=== PATIENT | female | born 1970 | race African-American/Black ===

== ENCOUNTER 2017-09-14 06:11 | Observation (INO) | payer OTHER ==
[~2017-09-14] VITALS: Ht 165.1 cm; Wt 117.9 kg
[~2017-09-14 06:11] MED LIST: HYDROCHLOROTHIA25 MG PO; LISINOPRIL10 MG PO; OMEPRAZOLE20 MG PO
[2017-09-14] MEDS ORDERED: ASPIRIN 81 MG CHEW TAB PO ONE (06:30)
[2017-09-14] MEDS ORDERED: HYDROCHLOROTHIAZIDE 25 MG TAB PO ONE (06:35)
[2017-09-14] MEDS ORDERED: LISINOPRIL 10 MG TAB PO ONE (06:35)
[2017-09-14 06:52] LABS: BASOPHILS % 0.4 % (0.0-1.0); EOSINOPHILS # (AUTO) 0.1 (0.0-0.4); EOSINOPHILS % 1.1 % (0.0-6.0); LYMPHOCYTES # (AUTO) 2.3 (1.0-3.2); MEAN CORPUSCULAR HEMOGLOBIN 28.6 pg (28-32); MEAN CORPUSCULAR HGB CONC 33.3 g/dL (31-35); MEAN CORPUSCULAR VOLUME 85.7 fL (81-99); MONOCYTES # (AUTO) 0.6 (0.2-0.8); MONOCYTES % 8.6 % (4.4-11.3); NEUTROPHILS # (AUTO) 4.4 (2.1-6.9); NEUTROPHILS % 58.8 % (38.7-80.0); PLATELET COUNT 421 x10e3/uL (140-360)
[2017-09-14 06:56] LABS: INR 1.06
[2017-09-14 06:57] LABS: PARTIAL THROMBOPLASTIN TIME 40.5 seconds (23.8-35.5)
--- NOTE | 2017-09-14 06:58 | Diagnostic Imaging Report ---
CHEST SINGLE (PORTABLE), 09/14/2017 6:25 AM Technique: CHEST SINGLE (PORTABLE) Comparison: None available. Clinical history: chest pain Findings: Limited by portable technique and overlying soft tissue attenuation. Otherwise unremarkable appearance of the heart, mediastinum, lungs and pleural spaces. Impression: 1. Lines/Tubes: None 2. No acute abnormality. Signed by: Dr Melissa Beckham MD on 09/14/2017 6:54 AM
[2017-09-14 07:04] LABS: ALANINE AMINOTRANSFERASE 26 IU/L (0-55); ALBUMIN 3.4 g/dL (3.5-5.0); ALBUMIN/GLOBULIN RATIO 0.9 (0.8-2.0); ALKALINE PHOSPHATASE 63 IU/L (40-150); ANION GAP 12.5 mmol/L (8-16); BLOOD UREA NITROGEN 7 mg/dL (7-26); BUN/CREATININE RATIO 9 (6-25); CALCIUM 9.1 mg/dL (8.4-10.2); CARBON DIOXIDE 24 mmol/L (22-29); CHLORIDE 105 mmol/L (98-107); CREATINE KINASE 104 IU/L (29-168); CREATININE, SERUM 0.78 mg/dL (0.57-1.11); EST GLOMERULAR FILTRATION RATE > 60 ML/MIN (60-); GLUCOSE 99 mg/dL (74-118); POTASSIUM 3.5 mmol/L (3.5-5.1); SODIUM 138 mmol/L (136-145)
--- NOTE | 2017-09-14 08:32 | History and Physical ---
Ms. Jean-Baptiste is a 47-year-old female with a history of hypertension came to the emergency room complaining of chest pain. As per the patient, chest pain started a week ago on and off lasting a few minutes with no radiation. This morning she was sleeping and the pain woke her up. This pain lasted more than an hour. She decided to come to the emergency room. She denies any nausea, vomiting, any shortness of breath. PAST MEDICAL HISTORY: Hypertension. ALLERGIES: NO KNOWN DRUG ALLERGIES. SOCIAL HISTORY: She does not smoke. She quit drinking a few months ago. SURGICAL HISTORY: Tubal ligation and cholecystectomy. PHYSICAL EXAMINATION GENERAL: Today, she is awake and alert. VITALS: Blood pressure is 161/102, temperature 97.5, heart rate is 89, respiratory rate is 18. HEART: Regular rate. Normal S1 and S2. LUNGS: Clear to auscultation. ABDOMEN: Distended and soft. EXTREMITIES: Lower extremities with no edema. No erythema. NEURO: She is awake and alert times 3. No motor or sensory deficit. BLOOD WORK: White count is 7.48, hemoglobin 12, hematocrit 36. Potassium is 3.5, creatinine is 0.78. First set of cardiac enzymes negative. PT is 13, INR 1.06. Chest x-ray shows no acute abnormalities. ASSESSMENT AND PLAN 1. Chest pain on and off: Rule out coronary artery disease. 2. Uncontrolled hypertension. PLAN: At the present time, the patient is going to need an EKG, echocardiogram, cardiac enzymes times 3. Cardiology consult. She was started on aspirin 325 mg daily. She is on hydrochlorothiazide 25 mg daily, lisinopril 10 mg daily. We are going to give her p.r.n. blood pressure medications as needed. All of this was discussed with the patient. All questions were answered to satisfaction. Job#: [id number] MACY
[2017-09-14 09:00] VITALS: BP 164/93
[2017-09-14] MEDS ORDERED: ACETAMINOPHEN 325 MG TAB PO PRN (09:30)
[2017-09-14] MEDS: ASPIRIN 325 MG TAB EC PO SCH (09:57)
[2017-09-14 10:31] VITALS: BP 164/93
[2017-09-14 11:26] VITALS: BP 135/77
--- NOTE | 2017-09-14 13:09 | Consultation ---
DATE OF CONSULTATION: September 14, 2017 CARDIOLOGY CONSULTATION REASON FOR CONSULTATION: Chest pain. CHIEF COMPLAINT: "I have a pinch in my chest for the past 1 week." HISTORY OF PRESENT ILLNESS: Patient is a 47-year-old female with a history of hypertension that is poorly controlled and obesity, who presented to the ER with complaints of left-sided chest pain that began about one week ago. She describes the pain as a pinching sensation on the left side of her chest near her breast bone that is constant, 7/10 in severity. It has been there for approximately one week. Has never gone away completely. It does get worse sometimes with movement. Does not improve with rest. Does not radiate. No shortness of breath or diaphoresis associated. Patient also complains about feeling some palpitations without any syncope or presyncope. She has no prior cardiac history. REVIEW OF SYSTEMS: A 10-point review of systems was performed and was negative other than what is mentioned in the HPI. PAST MEDICAL HISTORY 1. Hypertension. 2. Fibroids. 3. Obesity. FAMILY HISTORY: Notable for family history of breast cancer on father's side. No history of early CAD. SOCIAL HISTORY: Patient does not smoke, drink or use illicit drugs. PHYSICAL EXAMINATION VITAL SIGNS: Temperature 97.6. Pulse 80. Respiratory rate 20. Blood pressure 135/77, satting 98% on room air. EYES: Conjunctivae clear. EARS, NOSE, MOUTH AND THROAT: Normal mucosa. No pallor or bleeding. NECK: No jugular venous distention. MUSCULOSKELETAL: Normal muscle tone and strength. No atrophy or abnormal movements. EXTREMITIES: No clubbing or cyanosis. SKIN: No venous stasis changes or ulcers. GENERAL: Well-developed, well-nourished, obese. CARDIOVASCULAR: PMI could not be palpated due to body habitus. Normal S1, S2. No murmurs, rubs or gallops. Palpable radial pulses. Palpable carotid pulses. Palpable pedal pulses. No peripheral edema or varicosities. RESPIRATORY: No respiratory distress. Lungs are clear to auscultation bilaterally. ABDOMEN: Soft, nontender. No masses. No hepatosplenomegaly. NEURO AND PSYCH: Alert and oriented to person, place and time. Normal affect. MEDICATIONS: Inpatient and outpatient medications are reviewed. Cardiovascular medications are notable for lisinopril 10 mg daily, hydrochlorothiazide 25 mg daily and aspirin 325 mg daily. LABS: Laboratory data reviewed and notable for negative cardiac enzymes. EKG reviewed, essentially normal. ASSESSMENT 1. Atypical chest pain. 2. Hypertension. 3. Obesity. PLAN: Her chest pain is reproducible by palpation. Based on history, most likely costochondritis, noncardiac chest pain. Recommend starting ibuprofen 800 mg q.8 h. for 2 weeks for treatment. The patient can stop the aspirin. Resume her home blood pressure medicines. Patient to follow up with me in clinic in 2 to 4 weeks as an outpatient. Thank you for this consult. From a cardiovascular standpoint , the patient is ready to be discharged after a 2nd set of cardiac enzymes has been negative. Job#: [id number]
[2017-09-14] MEDS: IBUPROFEN 400 MG TAB PO SCH ×3 (13:20→21:33)
[2017-09-14] MEDS ORDERED: IBUPROFEN 200 MG TAB PO SCH (14:00)
[2017-09-14 16:11] VITALS: BP 123/80
[2017-09-14 16:41] LABS: CREATINE KINASE MB 0.4 ng/mL (0-5.0)
[2017-09-14 20:00] VITALS: BP 125/77
[2017-09-14 21:00] VITALS: BP 125/77
[2017-09-15] VITALS: BP 126/82
[2017-09-15 01:00] LABS: CREATINE KINASE MB 0.3 ng/mL (0-5.0)
[2017-09-15 04:00] VITALS: BP 125/83
[2017-09-15 08:28] VITALS: BP 139/79
[2017-09-15 08:29] VITALS: BP 139/79
[2017-09-15] MEDS ORDERED: LISINOPRIL 10 MG TAB PO SCH (09:00)
[2017-09-15] MEDS ORDERED: HYDROCHLOROTHIAZIDE 25 MG TAB PO SCH (09:00)
[2017-09-15] MEDS: ASPIRIN 325 MG TAB EC PO SCH (09:20)
--- NOTE | 2017-09-15 10:58 | Discharge Summary ---
Ms. Jean-Baptiste is a 47-year-old female who came to the emergency room. She has a history of hypertension. She came to the emergency room complaining of chest pain on and off for a week. She was seen by copy worker and cleared by him. The plan is to discharge her home if cardiac enzymes are negative and echocardiogram is negative. PHYSICAL EXAMINATION GENERAL: Today, she is awake and alert. VITALS: Temperature is 98.5, blood pressure 129/79. HEART: Regular rate. LUNGS: Clear to auscultation. ABDOMEN: Soft. BLOOD WORK: Potassium 3.5, creatinine 0.78, glucose 99. White count 7.48, hemoglobin 12, hematocrit 36. ASSESSMENT AND PLAN 1. Chest pain. 2. Uncontrolled hypertension. PLAN: At the present time, if cardiac enzymes are negative and echocardiogram is negative, the patient is going to be discharged home on ibuprofen 800 mg daily, hydrochlorothiazide 25 mg daily and lisinopril 10 mg daily. She needs followup with me in 1 week. She is to call me or come back to the emergency room if any recurrent pain. All of this was discussed with the patient. All questions were answered to satisfaction. Please see home medication reconciliation list. JERRI MURCIA MD Job#: [id number] MA
[2017-09-15 11:14] VITALS: BP 112/87
[2017-09-15 11:16] VITALS: BP 112/87
[2017-09-15] MEDS ORDERED: LISINOPRIL10 MG PO (11:29)
[2017-09-15] MEDS ORDERED: HYDROCHLOROTHIA25 MG PO (11:30)
[2017-09-15] MEDS ORDERED: IBUPROFEN400 MG PO (11:30)
[2017-09-15] MEDS: IBUPROFEN 400 MG TAB PO SCH (15:24)
== END 2017-09-15 17:04 | disposition home or self-care (01) ==
LOC: ER 06:11 → ERHOLD 07:55 → IMCU 08:48
PROVIDERS: ADMIT Internal Medicine; ATTEND Internal Medicine
DX: R07.2 Precordial pain (principal); I10 Essential (primary) hypertension; D25.9 Leiomyoma of uterus, unspecified; Z87.891 Personal history of nicotine dependence; E66.9 Obesity, unspecified; Z68.41 Body mass index [BMI] 40.0-44.9, adult
CPT/HCPCS: 36415; 71045; 80053; 82550; 82553; 83880; 84484; 85025; 85610; 85730; 93005; 93306; 99284; G0378 ×2

== ENCOUNTER 2018-06-06 11:53 | Emergency (ER) | payer OTHER ==
[~2018-06-06] VITALS: Ht 165.1 cm; Wt 117.9 kg
[~2018-06-06 11:53] MED LIST changes: +IBUPROFEN400 MG PO
[2018-06-06] MEDS ORDERED: FAMOTIDINE 20 MG TAB PO ONE (12:15)
[2018-06-06] MEDS ORDERED: DEXAMETHASONE SOD PHOS 10 MG/1 ML VIAL IM ONE (12:15)
[2018-06-06] MEDS ORDERED: DIPHENHYDRAMINE HCL 25 MG CAP PO ONE (12:15)
[2018-06-06 12:51] VITALS: BP 121/85
== END 2018-06-06 13:00 | disposition home or self-care (01) ==
LOC: ER 11:53
DX: R21 Rash and other nonspecific skin eruption (principal)
CPT/HCPCS: 99282; J1100

== ENCOUNTER 2019-04-13 18:03 | Emergency (ER) | payer OTHER ==
[~2019-04-13] VITALS: Ht 165.1 cm; Wt 117.9 kg
[2019-04-13 18:45] LABS: BASOPHILS # (AUTO) 0.1 (0.0-0.1); BASOPHILS % 0.6 % (0.0-1.0); EOSINOPHILS # (AUTO) 0.3 (0.0-0.4); EOSINOPHILS % 3.4 % (0.0-6.0); HEMATOCRIT 35.7 % (34.2-44.1); HEMOGLOBIN 11.3 g/dL (12.0-16.0); LYMPHOCYTES # (AUTO) 3.6 (1.0-3.2); LYMPHOCYTES % 42.2 % (18.0-39.1); MEAN CORPUSCULAR HEMOGLOBIN 27.3 pg (28-32); MEAN CORPUSCULAR HGB CONC 31.7 g/dL (31-35); MEAN CORPUSCULAR VOLUME 86.2 fL (81-99); MONOCYTES # (AUTO) 0.5 (0.2-0.8); MONOCYTES % 6.3 % (4.4-11.3); NEUTROPHILS % 47.3 % (38.7-80.0); PLATELET COUNT 514 x10e3/uL (140-360); RED BLOOD COUNT 4.14 x10e6/uL (3.6-5.1); RED CELL DISTRIBUTION WIDTH 15.5 % (11.7-14.4)
[2019-04-13 18:49] LABS: BILIRUBIN,URINE NEGATIVE (NEGATIVE); CLARITY,URINE CLEAR (CLEAR); COLOR,URINE YELLOW (YELLOW); KETONES,URINE NEGATIVE (NEGATIVE); LEUKOCYTE ESTERASE ,URINE NEGATIVE (NEGATIVE); NITRITE,URINE NEGATIVE (NEGATIVE); PROTEIN,URINE DIPSTICK NEGATIVE (NEGATIVE); URINE UROBILINOGEN 0.2 mg/dL (0.2 - 1)
[2019-04-13 18:50] LABS: PREGNANCY TEST, URINE NEGATIVE (NEGATIVE)
[2019-04-13 19:01] LABS: EPITHELIAL CELLS,URINE RARE /LPF
[2019-04-13 19:04] LABS: ALANINE AMINOTRANSFERASE 13 IU/L (0-55); ALBUMIN 3.8 g/dL (3.5-5.0); ALKALINE PHOSPHATASE 61 IU/L (40-150); ANION GAP 10.7 mmol/L (8-16); BLOOD UREA NITROGEN 9 mg/dL (7-26); BUN/CREATININE RATIO 12 (6-25); CALCIUM 8.9 mg/dL (8.4-10.2); CARBON DIOXIDE 26 mmol/L (22-29); CHLORIDE 106 mmol/L (98-107); CREATINE KINASE 136 IU/L (29-168); CREATININE, SERUM 0.77 mg/dL (0.57-1.11); EST GLOMERULAR FILTRATION RATE > 60 ML/MIN (60-); GLUCOSE 81 mg/dL (74-118); POTASSIUM 3.7 mmol/L (3.5-5.1); SODIUM 139 mmol/L (136-145)
--- NOTE | 2019-04-13 19:11 | Diagnostic Imaging Report ---
EXAMINATION: CHEST 2 VIEWS INDICATION: chest pain COMPARISON: 09/16/2017 FINDINGS: PA and lateral views TUBES and LINES: None. LUNGS: Lungs are well inflated. There is no evidence of pneumonia or pulmonary edema. PLEURA: No pleural effusion or pneumothorax. HEART AND MEDIASTINUM: The cardiomediastinal silhouette is unremarkable. BONES AND SOFT TISSUES: No acute osseous lesion. Soft tissues are unremarkable. UPPER ABDOMEN: No free air under the diaphragm. IMPRESSION: No acute thoracic abnormality. Signed by: Mike Novoa MD on 04/13/2019 7:08 PM
[2019-04-13 22:07] VITALS: BP 147/96
== END 2019-04-13 22:12 | disposition home or self-care (01) ==
LOC: ER 18:03
DX: R07.9 Chest pain, unspecified (principal); I10 Essential (primary) hypertension
CPT/HCPCS: 36415; 71046; 80053; 81001; 81025; 82550; 82553; 84484; 85025; 93005; 99284

== ENCOUNTER → 2019-08-16 | Outpatient (CLI) | payer OTHER ==
--- NOTE | 2019-08-16 15:59 | Diagnostic Imaging Report ---
EXAM: Complete Abdominal Ultrasound INDICATION: ^LEFT SIDED ABDOMINAL PAIN COMPARISON: None. TECHNIQUE: Transverse and longitudinal images of the upper abdomen were obtained. FINDINGS: Limited by body habitus and bowel gas. Liver: Size: 12.7 cm in the right midclavicular line, normal Appearance: Normal echogenicity, smooth contour Mass: No focal masses Spleen: Size: 9.1 cm in length, normal Echogenicity: Normal Mass: No focal masses Gallbladder: Surgically absent. Bile Ducts: Intrahepatic Ducts: No dilatation Extrahepatic Ducts: Common bile duct measures 0.4 cm, no dilatation Pancreas: Visualized pancreas is unremarkable. Right Kidney: Size: 9.1 cm Echogenicity: Normal Parenchymal thickness: Normal Collecting System: No hydronephrosis Stone: None Cyst/Mass: None Left Kidney: Size: 10.4 cm Echogenicity: Normal Parenchymal thickness: Normal Collecting System: No hydronephrosis Stone: None Cyst/Mass: Questionable 3.8 x 3.6 x 4.1 cm hypoechoic mass, extending from mid to superior pole. Vessels: Aorta: Visualized portions are unremarkable. Inferior Vena Cava: Visualized portions are normal Main Portal Vein: 0.7 cm, normal size with hepatopetal flow. Free Fluid: No ascites or pleural effusion IMPRESSION: Questionable left renal mass versus prominent column of Gregg. This can be further evaluated with nonurgent CT abdomen/pelvis with and without contrast (renal mass protocol). Otherwise, unremarkable abdominal ultrasound. Signed by: Dr. Fabien Tidwell MD on 08/16/2019 3:56 PM
--- NOTE | 2019-08-16 16:46 | Diagnostic Imaging Report ---
Exam: Pelvic ultrasound. History: Lower abdominal pain Comparison: Abdominal ultrasound of earlier the same day Findings: Transabdominal sonographic evaluation of the pelvis. The uterus is anteverted in position, measuring 14.0 x 6.7 x 9.1 cm. Endometrial stripe measures up to 13 mm. Multiple uterine fibroids, measuring up to 4.4 x 4.2 x 4.3 cm on the left and 6.8 x 5.4 x 5.9 cm on the right. The ovaries are not well-visualized on these transabdominal images due to overlying bowel gas. No free fluid in the pelvis. Impression: Multiple uterine fibroids. Ovaries not well visualized on this transabdominal study due to overlying bowel gas. Signed by: Thom Viera MD on 08/16/2019 4:43 PM
== END ==
LOC: US 11:35
PROVIDERS: ATTEND Internal Medicine Gastroenterology
DX: R10.32 Left lower quadrant pain (principal)
CPT/HCPCS: 76700; 76856

== ENCOUNTER 2020-07-19 02:58 | Emergency (ER) | payer SELFPAY ==
[~2020-07-19] VITALS: Ht 165.1 cm; Wt 117.9 kg
[2020-07-19 03:37] LABS: BASOPHILS % 0.4 % (0.0-1.0); EOSINOPHILS # (AUTO) 0.2 (0.0-0.4); EOSINOPHILS % 2.3 % (0.0-6.0); HEMATOCRIT 37.4 % (34.2-44.1); HEMOGLOBIN 11.8 g/dL (12.0-16.0); LYMPHOCYTES # (AUTO) 4.4 (1.0-3.2); LYMPHOCYTES % 45.5 % (18.0-39.1); MEAN CORPUSCULAR HEMOGLOBIN 27.4 pg (28-32); MEAN CORPUSCULAR HGB CONC 31.6 g/dL (31-35); MEAN CORPUSCULAR VOLUME 86.8 fL (81-99); MONOCYTES # (AUTO) 0.6 (0.2-0.8); MONOCYTES % 6.3 % (4.4-11.3); NEUTROPHILS # (AUTO) 4.4 (2.1-6.9); NEUTROPHILS % 45.2 % (38.7-80.0); PLATELET COUNT 474 x10e3/uL (140-360); RED BLOOD COUNT 4.31 x10e6/uL (3.6-5.1); RED CELL DISTRIBUTION WIDTH 16.3 % (11.7-14.4)
[2020-07-19 03:51] LABS: CLARITY,URINE CLOUDY (CLEAR); COLOR,URINE YELLOW (YELLOW)
[2020-07-19 03:52] LABS: AMPHETAMINES SCREEN,URINE NEGATIVE (NEGATIVE); BENZODIAZEPINES SCREEN,URINE NEGATIVE (NEGATIVE); KETONES,URINE NEGATIVE (NEGATIVE); LEUKOCYTE ESTERASE ,URINE 1+ (NEGATIVE); NITRITE,URINE NEGATIVE (NEGATIVE); PHENCYCLIDINE SCREEN,URINE NEGATIVE (NEGATIVE); PROTEIN,URINE DIPSTICK NEGATIVE (NEGATIVE); URINE UROBILINOGEN 0.2 mg/dL (0.2 - 1)
[2020-07-19 03:55] LABS: ALANINE AMINOTRANSFERASE 13 IU/L (0-55); ALBUMIN 3.6 g/dL (3.5-5.0); ALBUMIN/GLOBULIN RATIO 0.9 (0.8-2.0); ALKALINE PHOSPHATASE 68 IU/L (40-150); ANION GAP 14.2 mmol/L (8-16); BLOOD UREA NITROGEN 9 mg/dL (7-26); BUN/CREATININE RATIO 11 (6-25); CALCIUM 8.9 mg/dL (8.4-10.2); CARBON DIOXIDE 25 mmol/L (22-29); CHLORIDE 102 mmol/L (98-107); CREATININE, SERUM 0.85 mg/dL (0.57-1.11); EST GLOMERULAR FILTRATION RATE > 60 ML/MIN (60-); GLUCOSE 141 mg/dL (74-118); POTASSIUM 3.2 mmol/L (3.5-5.1); SODIUM 138 mmol/L (136-145)
[2020-07-19 04:05] LABS: WBC,URINE (MAN) 21-50 /HPF (0-5)
[2020-07-19 04:06] LABS: BACTERIA,URINE MANY /HPF; EPITHELIAL CELLS,URINE MANY /LPF; MUCUS,URINE MODERATE (RARE)
[2020-07-19] MEDS ORDERED: CEFTRIAXONE 1 GM VIAL IV ONE (04:15)
[2020-07-19] MEDS ORDERED: CEFTRIAXONE 1 GM in SODIUM CHLORIDE 0.9% 50ML 50 ML IV ONE (04:15)
[2020-07-19 04:21] LABS: CREATINE KINASE 187 IU/L (29-168)
[2020-07-19] MEDS ORDERED: CEFTRIAXONE 1 GM VIAL ONE (04:30)
[2020-07-19] MEDS ORDERED: SODIUM CHLORIDE 0.9% 50ML 50 ML ONE (04:31)
== END 2020-07-19 05:00 | disposition home or self-care (01) ==
LOC: ER 03:07
DX: R00.2 Palpitations (principal); N39.0 Urinary tract infection, site not specified; I10 Essential (primary) hypertension; K21.9 Gastro-esophageal reflux disease without esophagitis
CPT/HCPCS: 36415; 71045; 80053; 80307; 81001; 82550; 82553; 84484; 85025; 93005; 99284; J0696

== ENCOUNTER 2020-09-11 08:12 | Emergency (ER) | payer OTHER ==
[~2020-09-11] VITALS: Ht 167.6 cm; Wt 113.4 kg
[2020-09-11 08:55] LABS: CLARITY,URINE CLEAR (CLEAR); COLOR,URINE YELLOW (YELLOW); KETONES,URINE NEGATIVE (NEGATIVE); LEUKOCYTE ESTERASE ,URINE NEGATIVE (NEGATIVE); NITRITE,URINE NEGATIVE (NEGATIVE); PROTEIN,URINE DIPSTICK NEGATIVE (NEGATIVE); URINE UROBILINOGEN 0.2 mg/dL (0.2 - 1)
[2020-09-11 09:08] LABS: BACTERIA,URINE FEW /HPF; EPITHELIAL CELLS,URINE MODERATE /LPF; RBC,URINE 0-5 /HPF (0-5); WBC,URINE (MAN) 0-5 /HPF (0-5)
[2020-09-11 12:39] VITALS: BP 136/75
== END 2020-09-11 12:40 | disposition home or self-care (01) ==
LOC: ER 08:30
DX: R10.2 Pelvic and perineal pain (principal); D25.9 Leiomyoma of uterus, unspecified; I10 Essential (primary) hypertension; K21.9 Gastro-esophageal reflux disease without esophagitis
CPT/HCPCS: 76830; 76856; 81001; 81025; 99283

== ENCOUNTER 2021-10-11 17:47 | Emergency (ER) | payer OTHER ==
[~2021-10-11] VITALS: Ht 167.6 cm; Wt 113.4 kg
[~2021-10-11 17:47] MED LIST changes: +IBUPROFEN600 MG PO
[2021-10-11 18:54] LABS: BASOPHILS % 0.5 % (0.0-1.0); EOSINOPHILS # (AUTO) 0.3 (0.0-0.4); EOSINOPHILS % 3.5 % (0.0-6.0); HEMATOCRIT 40.7 % (34.2-44.1); HEMOGLOBIN 13.3 g/dL (12.0-16.0); LYMPHOCYTES # (AUTO) 3.1 (1.0-3.2); LYMPHOCYTES % 42.1 % (18.0-39.1); MEAN CORPUSCULAR HGB CONC 32.7 g/dL (31-35); MEAN CORPUSCULAR VOLUME 91.7 fL (81-99); MONOCYTES # (AUTO) 0.5 (0.2-0.8); MONOCYTES % 7.3 % (4.4-11.3); NEUTROPHILS # (AUTO) 3.4 (2.1-6.9); NEUTROPHILS % 46.5 % (38.7-80.0); PLATELET COUNT 457 x10e3/uL (140-360); RED BLOOD COUNT 4.44 x10e6/uL (3.6-5.1)
[2021-10-11 19:10] LABS: ALBUMIN 3.7 g/dL (3.5-5.0); ALBUMIN/GLOBULIN RATIO 0.9 (0.8-2.0); ANION GAP 15.3 mmol/L (8-16); CALCIUM 9.4 mg/dL (8.4-10.2); CREATININE, SERUM 0.85 mg/dL (0.57-1.11); POTASSIUM 3.3 mmol/L (3.5-5.1)
[2021-10-11 19:16] LABS: CREATINE KINASE MB 1.2 ng/mL (0-5.0)
[2021-10-11 20:57] VITALS: BP 118/67
[2021-10-11] MEDS ORDERED: ULTRAM 50MG50 MG PO (20:58)
== END 2021-10-11 21:00 | disposition home or self-care (01) ==
LOC: ER 17:54
DX: R06.02 Shortness of breath (principal); R07.89 Other chest pain; I10 Essential (primary) hypertension; K21.9 Gastro-esophageal reflux disease without esophagitis
CPT/HCPCS: 36415; 71045; 80053; 82550; 82553; 83880; 84484; 85025; 85379; 93005; 99284

== ENCOUNTER 2021-11-11 14:30 | Emergency (ER) | payer OTHER ==
[~2021-11-11] VITALS: Ht 165.1 cm; Wt 109.8 kg
[~2021-11-11 14:30] MED LIST changes: +ULTRAM 50MG50 MG PO
[2021-11-11] MEDS ORDERED: METHOCARBAMOL750 MG PO (15:12)
[2021-11-11] MEDS ORDERED: KETOROLAC TROME10 MG PEG (15:12)
[2021-11-11] MEDS ORDERED: MEDROL4 M2 PO (15:12)
== END 2021-11-11 17:29 | disposition home or self-care (01) ==
LOC: ER 14:42
DX: M54.12 Radiculopathy, cervical region (principal); M25.511 Pain in right shoulder; I10 Essential (primary) hypertension; K21.9 Gastro-esophageal reflux disease without esophagitis
CPT/HCPCS: 99283

== ENCOUNTER 2021-11-27 13:47 | Emergency (ER) | payer OTHER ==
[~2021-11-27] VITALS: Ht 165.1 cm; Wt 109.8 kg
[~2021-11-27 13:47] MED LIST changes: +KETOROLAC TROME10 MG PEG; +MEDROL4 M2 PO; +METHOCARBAMOL750 MG PO
[2021-11-27] MEDS ORDERED: ANAPROX DS550 MG PO (16:54)
[2021-11-27] MEDS ORDERED: MEDROL4 M2 PO (16:54)
[2021-11-27] MEDS ORDERED: TIZANIDINE HCL4 M1 PO (16:54)
[2021-11-27] MEDS ORDERED: GABAPENTIN300 MG PO (16:54)
== END 2021-11-27 17:04 | disposition home or self-care (01) ==
LOC: ER 14:09
DX: M50.10 Cervical disc disorder with radiculopathy, unspecified cervical region (principal); I10 Essential (primary) hypertension; K21.9 Gastro-esophageal reflux disease without esophagitis
CPT/HCPCS: 72141; 99283